=== PATIENT | male | born 1975 | race Caucasian/White ===

== ENCOUNTER → 2020-09-23 | Outpatient (CLI) | payer MEDICARE ==
[~2020-09-23] MED LIST: AMLODIPINE BESYL5 MG PO; ARNUITY ELLIP200 MCG INH; BAYER CHEWABLE81 MG PO; DIOVAN80 MG PO; EPIPEN 2-P0.3 MG/0.3 INJ; FLOVENT DISKU250 MCG INH; GABAPENTIN300 MG PO; GLUCOPHAGE500 MG PO; LIPITOR TAB 2020 MG PO; MONTELUKAST SOD10 MG PO; NAPROSYN500 MG PO; OZEMPIC0.25 MG/0. INJ; PREDNISONE 50 M50 MG PO; PROAIR HFA8.5 GM INH; ROBAXIN-750750 MG PO; SMZ/TMP DS PO; TENORMIN 25 MG25 MG PO; ULTRAM50 MG PO; VALTREX1000 MG PO; VITAMIN B12 INJ; VITAMIN D32000 UNI1 PO; VITAMIN D350000 UNIT PO; ZOLOFT50 MG PO; [UNRECOGNIZED DRUG - CODE] PO
== END ==
LOC: HEART 5 08:44
DX: I25.10 Atherosclerotic heart disease of native coronary artery without angina pectoris (principal); R06.02 Shortness of breath; I08.8 Other rheumatic multiple valve diseases; R94.2 Abnormal results of pulmonary function studies
CPT/HCPCS: 71046; 93306; 94060

== ENCOUNTER → 2020-10-30 | Outpatient (CLI) | payer OTHER | LOC: KOH-I 13:21 | DX: R59.0 Localized enlarged lymph nodes (principal) | CPT/HCPCS: 76536 ==

== ENCOUNTER → 2020-12-31 | Outpatient (CLI) | payer OTHER | LOC: EXRD 10:37 | DX: R13.10 Dysphagia, unspecified (principal); E04.1 Nontoxic single thyroid nodule | CPT/HCPCS: 76536 ==

== ENCOUNTER 2021-03-14 04:24 | Emergency (ER) | payer OTHER | END 2021-03-14 05:23 | disposition left against medical advice (07) | LOC: ER1 04:24 | DX: Z53.21 Procedure and treatment not carried out due to patient leaving prior to being seen by health care provider (principal) ==

== ENCOUNTER → 2021-07-05 | Outpatient (CLI) | payer OTHER ==
[2021-07-06 08:13] LABS: THYROXINE (T4) 3.8 ug/dL (4.5-12.0); TRIIODOTHYRONINE (T3) 77 ng/dL (71-180)
[2021-07-06 09:13] LABS: HBSAG SCREEN Negative (Negative); HEP A AB, IGM Negative (Negative); HEP B CORE AB, IGM Negative (Negative); HEP C VIRUS AB <0.1 (0.0-0.9)
[2021-07-06 14:13] LABS: LIVER-KIDNEY MICROSOMAL AB <1.0 Units (0.0-20.0)
[2021-07-07 01:09] LABS: IMMUNOGLOBULIN G, QN, SERUM 1029 mg/dL (603-1613)
== END ==
LOC: US 07:44
PROVIDERS: Internal Medicine Gastroenterology
DX: R94.5 Abnormal results of liver function studies (principal); K76.0 Fatty (change of) liver, not elsewhere classified
CPT/HCPCS: 36415; 76705; 80074; 82784; 84436; 84443; 84480; 86376

== ENCOUNTER → 2021-08-09 | Outpatient (CLI) | payer OTHER | LOC: LAB 13:47 | DX: R94.5 Abnormal results of liver function studies (principal) | CPT/HCPCS: 36415; 81256 ==

== ENCOUNTER → 2021-10-15 | Outpatient (CLI) | payer OTHER | LOC: KOH-I 11:03 | DX: E04.1 Nontoxic single thyroid nodule (principal); R13.10 Dysphagia, unspecified | CPT/HCPCS: 76536 ==

== ENCOUNTER → 2021-12-07 | Outpatient (CLI) | payer OTHER ==
[2021-12-07 14:10] LABS: BUN/CREATININE RATIO 13 (0-10)
== END ==
LOC: MRI 12:52
PROVIDERS: Nurse Practitioner Family
DX: E11.9 Type 2 diabetes mellitus without complications (principal); M25.50 Pain in unspecified joint; G56.00 Carpal tunnel syndrome, unspecified upper limb; E78.5 Hyperlipidemia, unspecified; E53.8 Deficiency of other specified B group vitamins
CPT/HCPCS: 36415; 72100; 74183; 80053; A9577